=== PATIENT | female | born 1970 | race Caucasian/White ===

== ENCOUNTER 2023-03-16 08:21 | Emergency (ER) | payer OTHER, SELFPAY ==
--- NOTE | ~2023-03-16 | CT_ITS ---
EXAMINATION: CT ABDOMEN AND PELVIS WITH CONTRAST CLINICAL INFORMATION: Abdominal pain, vomiting and diarrhea COMPARISON: Abdominal ultrasound from 2006 and pelvic ultrasound from 2008 TECHNIQUE: Multidetector volumetric images were obtained from the superior aspect of the liver through the pubic symphysis following administration 85 mL of Omnipaque 350 intravenous contrast. Sagittal and coronal reformatted images were obtained on the technologist's workstation. Oral contrast: Yes This CT examination was performed using dose optimization techniques as appropriate, variously including the following: *Automated exposure control *Adjustment of mA and/or kV according to patient size (this includes techniques or standardized protocols for targeted exams where dose is matched to indication/reason for exam; i.e. extremities or head) *Use of iterative reconstruction technique DLP: 650 mGy-cm FINDINGS: LUNG BASES: The visualized lung bases are unremarkable. LIVER, GALLBLADDER, AND BILIARY TREE: The liver is normal in size, shape, and attenuation. No focal hepatic lesion or biliary ductal dilatation is present. The gallbladder is unremarkable with no evidence of radiopaque gallstones, gallbladder wall thickening, or obvious pericholecystic inflammatory changes. PANCREAS: Unremarkable. SPLEEN: Unremarkable. ADRENAL GLANDS: Unremarkable. KIDNEYS AND URETERS: Limited due to motion artifact. No abnormality seen. BLADDER: Unremarkable. GASTROINTESTINAL TRACT: Limited due to motion artifact. It is difficult to exclude mild colitis of the right colon. Small and large bowel is otherwise normal. No evidence of obstruction, perforation or abscess. The appendix is normal. The stomach is normal. ABDOMINAL WALL: Small umbilical hernia containing fat. LYMPH NODES: Normal. VASCULAR: Unremarkable. PELVIC VISCERA: Unremarkable. OSSEOUS STRUCTURES: Unremarkable. CT/CT abdomen pelvis w IV con IMPRESSION: Limited exam due to respiratory motion artifact. It is difficult to exclude mild colitis of the right colon. Fleischner guidelines were followed.
[2023-03-16 09:11] VITALS: BMI 31.1
[2023-03-16 09:40] LABS: MANUAL DIFF FLAG NO
[2023-03-16 09:41] LABS: Basophils Absolute Auto 0.1 X10*3/uL (0.0-0.2); Basophils Percent Auto 0.8 % (0-2); Eosinophils Absolute Auto 0.1 X10*3/uL (0.0-0.4); Eosinophils Percent Auto 1.6 % (0-4); Hematocrit 45.2 % (37.0-47.0); Hemoglobin 15.3 g/dl (12.0-16.0); Imm Gran Abs Auto 0.01 X10*3/uL (0.00-0.03); Imm Gran Pct Auto 0.2 % (0.0-0.4); Lymphocytes Absolute Auto 2.2 X10*3/uL (1.2-4.9); Lymphocytes Percent Auto 36.1 % (20-40); Mean Corpuscular HGB Conc 33.8 g/dl (31.0-35.0); Mean Corpuscular Hemoglobin 29.5 pg (27.0-33.0); Mean Corpuscular Volume 87.1 fL (80.0-98.0); Mean Platelet Volume 9.5 fL (9.4-12.3); Monocytes Absolute Auto 0.5 X10*3/uL (0.1-1.2); Monocytes Percent Auto 8.6 % (2-11); Neutrophils Absolute Auto 3.3 x10*3/uL (2.0-8.3); Neutrophils Percent Auto 52.7 % (45-73); Platelet Count 284 X10*3/uL (160-400); Red Blood Count 5.19 X10*6/uL (4.20-5.50); Red Cell Distribution Width 13.6 % (11.0-16.0); White Blood Count 6.2 X10*3/uL (4.8-10.8)
[2023-03-16 10:04] LABS: Alanine Aminotransferase 29 U/L (0-31); Albumin Level 4.4 g/dL (3.5-5.0); Alkaline Phosphatase 81 U/L (39-117); Anion Gap 12 (12-20); Aspartate Amino Transferase 22 U/L (5-31); Bilirubin Direct 0.2 mg/dL (0.0-0.5); Bilirubin Total 1.1 mg/dL (0.0-1.0); Blood Urea Nitrogen 11 mg/dL (9-16); Calcium 9.5 mg/dL (8.4-10.2); Carbon Dioxide 27 mmol/L (22-29); Chloride 110 mmol/L (96-108); Creatinine Clr Calc Pharmacy 99.4; Estimated Glomerular Filt Rate > 60; Glucose Random 106 mg/dL (60-115); Lipase 34 U/L (8-78); Potassium 4.8 mmol/L (3.3-5.1); Sodium 144 mmol/L (135-145); Total Protein 7.3 g/dL (6.5-8.0)
--- NOTE | 2023-03-16 11:39 | ED_ITS ---
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 She states she has had several episodes of vomiting every single day after she eats. She also reports 3 episodes of nonbloody diarrhea per day. She reports diffuse abdominal pain, currently a 9-08/23. She states she had some coffee today but vomited it back up. She also reports some sensation of abdominal distention. She has had chills but no fevers. No urinary symptoms. No chest pain or SOB. MD elicited complaint: abdominal pain Pertinent past history: other (ovarian cancer) Onset (ago): month(s) (1) Pain Consistency: intermittent Location: diffuse Severity: severe Pain scale (0-10): 10 Quality: stabbing and aching Radiation: none Migration to: no migration Exacerbating factors: eating Relieving factors: nothing Context: foreign travel Associated symptoms: nausea, vomiting, diarrhea and chills Related Data Previous Rx's Medication Instructions Recorded amoxicillin 875 mg-potassium 1 tab PO BID #14 tabs 03/16/23 clavulanate 125 mg tablet ondansetron 4 mg disintegrating 4 mg PO Q8H PRN nausea and 03/16/23 tablet vomiting #10 tabs Allergies Allergy/AdvReac Type Severity Reaction Status Date / Time No Known Allergies Allergy Verified 03/16/23 09:20 Review of Systems Review of Systems Yes all other systems are reviewed and are negative PMFSH Social History Social History Smoked in Last 30 Days: No Use of substances other than those prescribed or required for medical reasons: No Advance Directives: No Advance Directives Information Provided: Yes Physical Exam ED Vital Signs: Vital Signs - 24 hr 03/16/23 11:40 03/16/23 12:03 03/16/23 15:22 Temperature 97.8 F 97.8 F Pulse Rate 61 53 Respiratory Rate 17 18 16 Blood Pressure 130/71 129/77 Pulse Oximetry 97 98 Oxygen Delivery Method Room Air Room Air BMI result Body Mass Index 31.1 Appearance: Alert. Oriented X3. No acute distress. Head: normocephalic, atraumatic. Eyes: Pupils equal, round and reactive to light. ENT: Pharynx normal. No tonsillar swelling or exudate. Neck: Normal inspection. Neck supple. CVS: Normal heart rate and rhythm. Pulses normal. Respiratory: No respiratory distress. Breath sounds normal. Abdomen: Well healed longitudinal surgical scar below the umbilicus, Soft with lower abdominal tenderness bilaterally, hyperactive +BS x4 Skin: Skin warm and dry. Normal skin color. Normal skin turgor. No rashes. Extremities: No lower extremity edema. No joint swelling. Neuro/psych: Oriented X 3. No motor deficit. No sensory deficit. CN II-XII intact. Normal speech and cognition. Course Reevaluation(s) Reevaluation #1: CT with question mild right sided colitis. labs unremarkable. given PO trial and she vomited. given reglan. will try again Medical Decision Making Medical Decision Making [facility] Narrative: 52 yo female with history of ovarian cancer s/p resection 1 year ago presents to the ER with 1 month of N/V/D and diffuse abd pain. Her abd is soft with lower abdominal tenderness, no guarding or rebound. Her lab workup is unremarkable. Her CT scan shows question right sided mild colitis. She was treated with morphine and zofran with improvement in her symptoms however she was not able to tolerate PO. She was then given reglan. Repeat PO trial successful. Differential Diagnosis Differential Diagnoses: The differential diagnosis associated with the presentation includes diverticulitis, colitis, SBO, appendicitis, IBD, IBS, traveler's diarrhea, Admission/Observation Consideration of admission/observation: Escalation of care including admiss ion/observation considered Lab Data [facility] Lab Attestation statement: I reviewed the patient's lab results. 03/16/23 09:37 03/16/23 09:37 Labs: Lab Results 03/16/23 03/16/23 Range/Units 09:37 09:37 WBC 6.2 (4.8-10.8) X10*3/uL RBC 5.19 (4.20-5.50) X10*6/uL Hgb 15.3 (12.0-16.0) g/dl Hct 45.2 (37.0-47.0) % MCV 87.1 (80.0-98.0) fL MCH 29.5 (27.0-33.0) pg MCHC 33.8 (31.0-35.0) g/dl RDW 13.6 (11.0-16.0) % Plt Count 284 (160-400) X10*3/uL MPV 9.5 (9.4-12.3) fL Immature Gran % (Auto) 0.2 (0.0-0.4) % Neut % (Auto) 52.7 (45-73) % Lymph % (Auto) 36.1 (20-40) % Clarke % (Auto) 8.6 (2-11) % Eos % (Auto) 1.6 (0-4) % Baso % (Auto) 0.8 (0-2) % Lymph # (Auto) 2.2 (1.2-4.9) X10*3/uL Clarke # (Auto) 0.5 (0.1-1.2) X10*3/uL Eos # (Auto) 0.1 (0.0-0.4) X10*3/uL Baso # (Auto) 0.1 (0.0-0.2) X10*3/uL Abs Immat Gran (auto) 0.01 (0.00-0.03) X10*3/uL Absolute Neuts (auto) 3.3 (2.0-8.3) x10*3/uL Absolute Nucleated RBC 0.000 (0.0-0.012) X10*3/uL Nucleated RBC % (auto) 0.0 (0.0-0.2) /100WBC Sodium 144 (135-145) mmol/L Potassium 4.8 (3.3-5.1) mmol/L Chloride 110 H (96-108) mmol/L Carbon Dioxide 27 (22-29) mmol/L Anion Gap 12 (12-20) BUN 11 (9-16) mg/dL Creatinine 0.78 (0.5-1.4) mg/dL Estim Creat Clear Calc 99.4 Estimated GFR > 60 Random Glucose 106 (60-115) mg/dL Calcium 9.5 (8.4-10.2) mg/dL Total Bilirubin 1.1 H (0.0-1.0) mg/dL Direct Bilirubin 0.2 (0.0-0.5) mg/dL AST 22 (5-31) U/L ALT 29 (0-31) U/L Alkaline Phosphatase 81 (39-117) U/L Total Protein 7.3 (6.5-8.0) g/dL Albumin 4.4 (3.5-5.0) g/dL Lipase 34 (8-78) U/L Beta HCG, Quant < 2 mIU/mL Independent Interpretation I performed an independent interpretation of an: CT Scan Interpretation: no acute obstruction or significant colitis - agree w/ radiology read Radiology Impression Discussion of test interpretation with radiology: I have reviewed the radiologist's reading. Radiologist Impression: CT/CT abdomen pelvis w IV con IMPRESSION: Limited exam due to respiratory motion artifact. It is difficult to exclude mild colitis of the right colon. Prescription Management I considered prescription management with: Pain Medication and Antibiotic Medications Administered Discontinued Medications Generic Name Dose Route Start Last Admin Trade Name Freq PRN Reason Stop Dose Admin Lactated Ringer's 1,000 mls @ 999 mls/hr 03/16/23 12:00 03/16/23 13:21 Lr IV 03/16/23 13:00 Infused .Q1H1M CHONG Infusion Iohexol 85 ml 03/16/23 13:20 03/16/23 13:21 Iohexol 350 Mg/Ml 100 Ml Infus..Btl IV 03/16/23 13:21 85 ml ONCE ONE Administration Metoclopramide HCl 10 mg 03/16/23 15:04 03/16/23 15:18 Metoclopramide Hcl 10 Mg/2 Ml Vial IVPUSH 03/16/23 15:05 10 mg ONCE ONE Administration Morphine Sulfate 4 mg 03/16/23 11:50 03/16/23 12:03 Morphine Sulfate 4 Mg/Ml Cartridge IVPUSH 03/16/23 11:51 4 mg ONCE ONE Administration Protocol Ondansetron HCl 4 mg 03/16/23 11:50 03/16/23 12:02 Ondansetron Hcl 4 Mg/2 Ml Vial IVPUSH 03/16/23 11:51 4 mg ONCE ONE Administration Discharge Plan Discharge Clinical Impression: Colitis Patient Disposition: Home, Self-Care Instructions: Acute Nausea and Vomiting (ED), Colitis (ED) Additional Instructions: If you develop new or worsening symptoms call 911 or come back to the ER for further evaluation. Prescriptions: New ondansetron 4 mg tablet,disintegrating 4 mg PO Q8H PRN (Reason: nausea and vomiting) Qty: 10 0RF amoxicillin-pot clavulanate 875-125 mg tablet 1 tab PO BID Qty: 14 0RF Referrals: [facility] [Provider Group]
[2023-03-16 11:40] VITALS: BP 130/71; PULSE 61; RESP 17; TEMP 36.6; O2SAT 97
[2023-03-16] MEDS: ondansetron HCL 4 MG/2 ML VIAL IVPUSH (12:02)
[2023-03-16 12:03] VITALS: RESP 18
[2023-03-16] MEDS: Morphine Sulfate 4 MG/ML CARTRIDGE IVPUSH (12:03)
[2023-03-16] MEDS: Lactated Ringers 1,000 ML 999 ML IV (12:14)
[2023-03-16 12:36] LABS: HCG Quantitative < 2 mIU/mL
[2023-03-16] MEDS: iohexoL 350 MG/ML 100 ML INFUS..BTL 85 ML IV (13:21)
[2023-03-16] MEDS: Metoclopramide HCl 10 MG/2 ML VIAL IVPUSH (15:18)
[2023-03-16 15:22] VITALS: BP 129/77; PULSE 53; RESP 16; TEMP 36.6; O2SAT 98
== END 2023-03-16 16:51 | disposition home or self-care (01) ==
PROVIDERS: Physician Assistant; Emergency Provider Emergency Medicine
DX: K52.9 Noninfective gastroenteritis and colitis, unspecified (principal); R11.2 Nausea with vomiting, unspecified; R10.9 Unspecified abdominal pain; Z85.43 Personal history of malignant neoplasm of ovary
CPT/HCPCS: 36415; 74177; 80048; 80076; 83690; 84702; 85025; 96361; 96374; 96375; 99284; J2270; J2405; J2765; Q9967

== ENCOUNTER 2023-10-14 16:02 | Emergency (ER) | payer OTHER, SELFPAY ==
[2023-10-14 16:19] VITALS: BP 126/81; PULSE 92; RESP 18; TEMP 36.7; O2SAT 97; BMI 31.7
--- NOTE | 2023-10-14 16:19 | ED.GENADULT ---
HPI - General Adult General Chief complaint: Nausea/Vomiting/Diarrhea Stated complaint: vomiting Time Seen by Provider: 10/14/23 17:53 Source: patient, family and rn postpartum Mode of arrival: ambulatory Limitations: no limitations History of Present Illness HPI narrative: 53 yo female with PMH of uterine cancer s/p surgery a couple of years ago notes 2 days of n/v/d and body aches. Denies sick contacts, travel, food exposures, antibiotic use. States she is not sure why this is happening. No abdominal pain states her whole body hurts. MD complaint: n/v/d Onset (ago): day(s) (2) Location: head, abdomen, upper extremity and lower extremity Radiation: non-radiation Severity: mild Quality: aching Pain Consistency: intermittent Relieving factors: none Exacerbating factors: none Associated symptoms: headaches, loss of appetite, malaise, nausea/vomiting and other (diarrhea) Treatments prior to arrival: none Related Data Previous Rx's Medication Instructions Recorded amoxicillin 875 mg-potassium 1 tab PO BID #14 tabs 03/16/23 clavulanate 125 mg tablet ondansetron 4 mg disintegrating 4 mg PO Q8H PRN nausea and 03/16/23 tablet vomiting #10 tabs ondansetron 4 mg disintegrating 4 mg PO Q8H PRN nausea and 10/14/23 tablet vomiting #20 tabs Allergies Allergy/AdvReac Type Severity Reaction Status Date / Time No Known Allergies Allergy Verified 10/14/23 16:18 Review of Systems Review of Systems: Constitutional : No Weight loss, No Fever, No Chills ENT/Mouth : No sore throat, No Rhinorrhea Eyes: No Swelling, No Redness Cardiovascular : No Chest Pain, No SOB, NoEdema Respiratory : No Cough, No Sputum, No Wheezing Gastrointestinal : Positive Nausea, Positive Vomiting, positive Diarrhea, positive abdominal Pain, No Hematochezia, No Melena Genitourinary : No Dysuria, No Urinary Frequency, No Hematuria, No Urgency Musculoskeletal : No joint pain, pos Myalgias, No Joint Swelling Skin : No Skin Lesions, No rash Neuro : No Weakness, No Numbness, No Dizziness, No Headache Psych : No Anxiety/Panic, No Depression Heme/Lymph: No Bruising, No Lymphadenopathy Endocrine : No Polyuria, No Polydipsia All other systems reviewed and are negative. [facility] Past Medical History Attestation statement: The following information was validated with the patient. Medical History Uterine cancer Surgical History H/O: hysterectomy Social History Alcohol intake: never Smoked in Last 30 Days: No Use of substances other than those prescribed or required for medical reasons: No Advance Directives: No Advance Directives Information Provided: No Patient : No Physical Exam ED Vital Signs: Vital Signs - 24 hr 10/14/23 16:19 10/14/23 18:07 10/14/23 19:43 Temperature 98.0 F 97.9 F 98.3 F Pulse Rate 92 80 Respiratory Rate 18 18 Blood Pressure 126/81 110/66 Pulse Oximetry 97 94 Oxygen Delivery Method Room Air Room Air 10/14/23 19:44 Temperature 97.8 F Pulse Rate 71 Respiratory Rate 18 Blood Pressure 117/70 Pulse Oximetry 98 Oxygen Delivery Method Room Air BMI result Body Mass Index 31.7 Appearance: Alert. Oriented X3. No acute distress. Eyes: Pupils equal, round and reactive to light. ENT: Pharynx normal. Neck: Normal inspection. Neck supple. CVS: Normal heart rate and rhythm. Pulses normal. Respiratory: No respiratory distress. Breath sounds normal. Abdomen: Soft and nontender. Skin: Skin warm and dry. Normal skin color. Normal skin turgor. Extremities: No lower extremity edema. No calf ttp Neuro: Oriented X 3. No motor deficit. No sensory deficit. Course Course Course Narrative: This is a rapid medical exam. Deferred additional HPI, ROS, PE to primary provider. 53 yo female with no known medical history here with body aches, vomiting, diarrhea x 2 days. No sick contact. Negative covid test at home. Will obtain labs, viral screen, UA Will give SL zofran VSS Reevaluation(s) Reevaluation #1: feels better tolerating PO stable for DC Medications Administered Discontinued Medications Generic Name Dose Route Start Last Admin Trade Name Freq PRN Reason Stop Dose Admin Sodium Chloride 1,000 mls @ 999 mls/hr 10/14/23 18:30 10/14/23 19:25 Ns IV 10/14/23 19:30 Infused .Q1H1M CHONG Infusion Ketorolac Tromethamine 15 mg 10/14/23 18:18 10/14/23 18:23 Ketorolac Tromethamine 15 Mg/Ml Vial IVPUSH 10/14/23 18:19 15 mg ONCE ONE Administration Ondansetron HCl 4 mg 10/14/23 16:20 10/14/23 16:22 Ondansetron Odt 4 Mg Tab.Rapdis TRANSLINGU 10/14/23 16:21 4 mg ONCE ONE Administration Ondansetron HCl 4 mg 10/14/23 18:18 10/14/23 18:23 Ondansetron Hcl 4 Mg/2 Ml Vial IVPUSH 10/14/23 18:19 4 mg ONCE ONE Administration Medical Decision Making Medical Decision Making MDM Narrative: 53 yo female with resolved uterine cancer here with c/o body aches, n/v/d and not feeling well x 2 days without a source at this time labs, viral panel, IVF and supportive medications. She has benign abdominal exam and no ttp she has mild bump in LFTs but could be viral denies restaurant food and has no RUQ pain on exam. Differential Diagnosis Differential Diagnoses: The differential diagnosis associated with the presentation includes viral syndrome, dehydraion, UTI Admission/Observation Consideration of admission/observation: Escalation of care including admission/observation considered feels better, tolerating PO stable for DC Lab Data [facility] Lab Attestation statement: I reviewed the patient's lab results. 10/14/23 16:48 10/14/23 16:48 Labs: Lab Results 10/14/23 10/14/23 Range/Units 16:46 16:48 WBC 9.2 (4.8-10.8) X10*3/uL RBC 4.91 (4.20-5.50) X10*6/uL Hgb 14.6 (12.0-16.0) g/dl Hct 43.5 (37.0-47.0) % MCV 88.6 (80.0-98.0) fL MCH 29.7 (27.0-33.0) pg MCHC 33.6 (31.0-35.0) g/dl RDW 13.5 (11.0-16.0) % Plt Count 288 (160-400) X10*3/uL MPV 10.1 (9.4-12.3) fL Immature Gran % (Auto) 0.2 (0.0-0.4) % Neut % (Auto) 89.6 H (45-73) % Lymph % (Auto) 5.8 L (20-40) % Caroline % (Auto) 4.1 (2-11) % Eos % (Auto) 0.0 (0-4) % Baso % (Auto) 0.3 (0-2) % Lymph # (Auto) 0.5 L (1.2-4.9) X10*3/uL Caroline # (Auto) 0.4 (0.1-1.2) X10*3/uL Eos # (Auto) 0.0 (0.0-0.4) X10*3/uL Baso # (Auto) 0.0 (0.0-0.2) X10*3/uL Abs Immat Gran (auto) 0.02 (0.00-0.03) X10*3/uL Absolute Neuts (auto) 8.3 (2.0-8.3) x10*3/uL Absolute Nucleated RBC 0.000 (0.0-0.012) X10*3/uL Nucleated RBC % (auto) 0.0 (0.0-0.2) /100WBC Sodium 139 (135-145) mmol/L Potassium 3.6 D (3.3-5.1) mmol/L Chloride 107 (96-108) mmol/L Carbon Dioxide 23 (22-29) mmol/L Anion Gap 13 (12-20) BUN 12 (9-16) mg/dL Creatinine 0.88 (0.5-1.4) mg/dL Estim Creat Clear Calc 84.9 Estimated GFR > 60 Random Glucose 118 H (60-115) mg/dL Calcium 9.3 (8.4-10.2) mg/dL Total Bilirubin 0.9 (0.0-1.0) mg/dL Direct Bilirubin 0.3 (0.0-0.5) mg/dL AST 40 H (5-31) U/L ALT 53 H (0-31) U/L Alkaline Phosphatase 100 (39-117) U/L Total Protein 7.9 (6.5-8.0) g/dL Albumin 4.6 (3.5-5.0) g/dL Urine Color Yellow Urine Appearance Clear Urine pH 5.5 (5.0-9.0) Ur Specific Warren 1.025 (1.005-1.025) Urine Protein Negative (Neg-Trace) mg/dL Urine Glucose (UA) Negative (Negative) mg/dL Urine Ketones Negative (Negative) mg/dL Urine Blood Trace (Negative) Urine Nitrite Negative (Negative) Ur Leukocyte Esterase Negative (Negative) Urine RBC 3-5 H (0-2) /HPF Urine WBC 0-5 (0-5) /HPF Ur Squamous Epith Cells 6-10 (0-2) /HPF Urine Bacteria 2+ (None Seen) Hyaline Casts 3-5 (0-2) /LPF Influenza Type A (PCR) NEGATIVE (Negative) Influenza Type B (PCR) NEGATIVE (Negative) RSV RNA Qual (PCR) NEGATIVE (Negative) SARS-CoV-2 RNA (RT-PCR) NEGATIVE (Negative) Independent Historian Clinical information obtained from an independent historian. History obtained from or confirmed by: Friend External Record Review External record reviewed: Inpatient record Prescription Management I considered prescription management with: Other Discharge Plan Discharge Clinical Impression: Acute viral syndrome Nausea & vomiting Qualifiers: Vomiting type: unspecified Qualified Code(s): R11.2 - Nausea with vomiting, unspecified Patient Disposition: Home, Self-Care Instructions: Acute Nausea and Vomiting (ED), Viral Syndrome (ED) Additional Instructions: return for chest pain, difficulty breathing, inability to eat or drink or any other concerns. worsening abdominal pain. repeat liver function tests in 1 week with your doctor. Regrese por dolor en el pecho, dificultad para respirar, incapacidad para comer o beber o cualquier otra inquietud. empeoramiento del dolor abdominal. Repita las pruebas de funci?n hep?felix en 1 semana con tellez m?dico. Prescriptions: New ondansetron 4 mg tablet,disintegrating 4 mg PO Q8H PRN (Reason: nausea and vomiting) Qty: 20 0RF No Action ondansetron 4 mg tablet,disintegrating 4 mg PO Q8H PRN (Reason: nausea and vomiting) Qty: 10 0RF amoxicillin-pot clavulanate 875-125 mg tablet 1 tab PO BID Qty: 14 0RF Print Language: Kyrgyz
[2023-10-14] MEDS: Ondansetron ODT 4 MG TAB.RAPDIS TRANSLINGU (16:22)
--- NOTE | 2023-10-14 16:49 | MHC.EDTECH ---
Patient blood drawn ,urine sample collected and rsv/covid swab all sent to lab .
[2023-10-14 17:00] LABS: MANUAL DIFF FLAG NO
[2023-10-14 17:02] LABS: Basophils Percent Auto 0.3 % (0-2); Hematocrit 43.5 % (37.0-47.0); Hemoglobin 14.6 g/dl (12.0-16.0); Imm Gran Abs Auto 0.02 X10*3/uL (0.00-0.03); Imm Gran Pct Auto 0.2 % (0.0-0.4); Lymphocytes Absolute Auto 0.5 X10*3/uL (1.2-4.9); Lymphocytes Percent Auto 5.8 % (20-40); Mean Corpuscular HGB Conc 33.6 g/dl (31.0-35.0); Mean Corpuscular Hemoglobin 29.7 pg (27.0-33.0); Mean Corpuscular Volume 88.6 fL (80.0-98.0); Mean Platelet Volume 10.1 fL (9.4-12.3); Monocytes Absolute Auto 0.4 X10*3/uL (0.1-1.2); Monocytes Percent Auto 4.1 % (2-11); Neutrophils Absolute Auto 8.3 x10*3/uL (2.0-8.3); Neutrophils Percent Auto 89.6 % (45-73); Platelet Count 288 X10*3/uL (160-400); Red Blood Count 4.91 X10*6/uL (4.20-5.50); Red Cell Distribution Width 13.5 % (11.0-16.0); White Blood Count 9.2 X10*3/uL (4.8-10.8)
[2023-10-14 17:03] LABS: Appearance Urine Clear; Color Urine Yellow; Glucose Urine UA Negative (Negative); Leukocyte Esterase Urine Negative (Negative); Nitrite Urine Negative (Negative); PH 5.5 (5.0-9.0); Specific Gravity - Urine 1.025 (1.005-1.025); UMIC TRIGGER UACC YES; Urine Blood Trace (Negative); Urine Ketones Negative (Negative); Urine Protein Negative (Neg-Trace)
[2023-10-14 17:08] LABS: Bacteria Urine 2+ (None Seen); WBC Urine 0-5 /HPF (0-5)
[2023-10-14 17:19] LABS: Alanine Aminotransferase 53 U/L (0-31); Albumin Level 4.6 g/dL (3.5-5.0); Alkaline Phosphatase 100 U/L (39-117); Anion Gap 13 (12-20); Aspartate Amino Transferase 40 U/L (5-31); Bilirubin Direct 0.3 mg/dL (0.0-0.5); Bilirubin Total 0.9 mg/dL (0.0-1.0); Blood Urea Nitrogen 12 mg/dL (9-16); Calcium 9.3 mg/dL (8.4-10.2); Carbon Dioxide 23 mmol/L (22-29); Chloride 107 mmol/L (96-108); Creatinine Clr Calc Pharmacy 84.9; Estimated Glomerular Filt Rate > 60; Glucose Random 118 mg/dL (60-115); Potassium 3.6 mmol/L (3.3-5.1); Sodium 139 mmol/L (135-145); Total Protein 7.9 g/dL (6.5-8.0)
[2023-10-14 17:48] LABS: Influenza A PCR NEGATIVE (Negative); Influenza B PCR NEGATIVE (Negative); Resp Syncy Virus RNA Qual PCR NEGATIVE (Negative); SARS COV2 PCR INHOUSE NEGATIVE (Negative)
[2023-10-14 18:07] VITALS: BP 110/66; PULSE 80; RESP 18; TEMP 36.6; O2SAT 94
[2023-10-14] MEDS: 0.9 % Sodium Chloride 1,000 ML 999 ML IV (18:20)
[2023-10-14] MEDS: Ketorolac Tromethamine 15 MG/ML VIAL IVPUSH (18:23)
[2023-10-14] MEDS: ondansetron HCL 4 MG/2 ML VIAL IVPUSH (18:23)
--- NOTE | 2023-10-14 19:38 | PC.NURSE ---
Pt ca&ox4, no signs of distress. Pt resting comfortably in bed watching tv. Plan of care ongoing.
[2023-10-14 19:43] VITALS: TEMP 36.8
[2023-10-14 19:44] VITALS: BP 117/70; PULSE 71; RESP 18; TEMP 36.6; O2SAT 98
== END 2023-10-14 21:01 | disposition home or self-care (01) ==
PROVIDERS: Nurse Practitioner Family; Emergency Provider Emergency Medicine
DX: B34.9 Viral infection, unspecified (principal); R11.2 Nausea with vomiting, unspecified; R19.7 Diarrhea, unspecified; Z20.822 Contact with and (suspected) exposure to COVID-19; Z20.828 Contact with and (suspected) exposure to other viral communicable diseases
CPT/HCPCS: 0241U; 36415; 80048; 80076; 81001; 81003; 85025; 96361; 96374; 96375; 99284; 99285; J1885; J2405

== ENCOUNTER 2023-11-26 22:23 | Emergency (ER) | payer OTHER, SELFPAY ==
[2023-11-26 22:31] VITALS: BP 141/92; PULSE 113; RESP 16; TEMP 38; O2SAT 96; BMI 23.6
--- NOTE | 2023-11-27 01:26 | ED.URI ---
HPI - URI/Sore Throat General Chief Complaint: Upper Respiratory Symptoms Stated Complaint: Headache,sore throat,vomiting Time Seen by Provider: 11/27/23 01:13 Source: patient Mode of arrival: ambulatory Limitations: no limitations History of Present Illness HPI Narrative: Patient comes to the emergency room complaining of 3 days of dry cough, generalized malaise, sore throat, congestion, nausea and vomiting. Patient denies chest pain or shortness of breath, no abdominal pain. Related Data Previous Rx's Medication Instructions Recorded amoxicillin 875 mg-potassium 1 tab PO BID #14 tabs 03/16/23 clavulanate 125 mg tablet ondansetron 4 mg disintegrating 4 mg PO Q8H PRN nausea and 03/16/23 tablet vomiting #10 tabs ondansetron 4 mg disintegrating 4 mg PO Q8H PRN nausea and 10/14/23 tablet vomiting #20 tabs ibuprofen 600 mg tablet 600 mg PO TID PRN fever or pain 11/27/23 #20 tabs nirmatrelvir 300 mg (150 mg See Rx Instructions PO .COMPLEX 11/27/23 x2)-ritonavir 100 mg tablet,dose #30 ea pack (Paxlovid) Allergies Allergy/AdvReac Type Severity Reaction Status Date / Time No Known Allergies Allergy Verified 10/14/23 16:18 Review of Systems Review of Systems: Constitutional : No Weight loss, complaining of subjective fever, chills, fatigue and generalized malaise ENT/Mouth : No Hearing loss, No Ear Pain, complaining of Nasal Congestion, No Sinus Pain, No Hoarseness, complaining of sore throat, No Rhinorrhea, No Swallowing Difficulty Eyes: No Eye Pain, No Swelling, No Redness, No Foreign Body, No Discharge, No Vision Changes Cardiovascular : No Chest Pain, No SOB, No Dyspnea on Exertion, No Orthopnea, No Edema, No Palpitations Respiratory : Complaining of dry cough, No Wheezing, No Smoke Exposure, No Dyspnea Gastrointestinal : No Nausea, No Vomiting, No Diarrhea, No Constipation, No abdominal Pain, No Hematochezia, No Melena Genitourinary : no irregular bleeding, No Dysuria, No Urinary Frequency, No Hematuria, No Urinary Incontinence, No Urgency, No Flank Pain, No Urinary Flow Changes, No Hesitancy Musculoskeletal : No joint pain, No Myalgias, No Joint Swelling Skin : No Skin Lesions, No rash Neuro : No Weakness, No Numbness, No Paresthesias, No Loss of Consciousness, No Dizziness, No Headache Psych : No Anxiety/Panic, No Depression, No SI/HI/AH/VH, No Social Issues, Heme/Lymph: No Bruising, No Bleeding,No Lymphadenopathy Endocrine : No Polyuria, No Polydipsia, No Temperature Intolerance PMFSH Past Medical History Onset Date is defined in the Problem List Problems that require an onset date and time if occurred within 24 hrs of arrival to the ED Aortic Dissection and Rupture; Neurologic impairment; Cardiopulmonary Arrest; Endotracheal Intubation; Insertion or Replacement of Mechanical Circulatory Assist Device Medical History Uterine cancer Surgical History H/O: hysterectomy Social History Social History Alcohol intake: never Advance Directives: No Advance Directives Information Provided: No Physical Exam Vital Signs: Vital Signs: Last Vital Signs Temp 100.4 F 11/26/23 22:31 Pulse 113 H 11/26/23 22:31 Resp 16 11/26/23 22:31 BP 141/92 H 11/26/23 22:31 Pulse Ox 96 11/26/23 22:31 O2 Del Method Room Air 11/26/23 22:31 BMI result Body Mass Index 23.6 Const: Other: Appearance: Alert. Oriented X3. No acute distress. Eyes: Pupils equal, round and reactive to light. ENT: Pharynx normal. Neck: Normal inspection. Neck supple. No lymph nodes noted. No crepitus CVS: Normal heart rate and rhythm. Pulses normal. Normal S1 and S2 Respiratory: No respiratory distress. Breath sounds normal. No Wheezing. No rales Abdomen: Soft and nontender. No rigidity. No distention. Skin: Skin warm and dry. Normal skin color. Normal skin turgor. Extremities: No lower extremity edema. No Lacerations. No Rash Neuro: Oriented X 3. No motor deficit. No sensory deficit. Moving all extremities. No slurred speech. CN 2 through 12 grossly intact Psych: calm, cooperative, normal affect Medications Administered Discontinued Medications Generic Name Dose Route Start Last Admin Trade Name Freq PRN Reason Stop Dose Admin Acetaminophen 650 mg 11/26/23 22:35 11/26/23 22:38 Acetaminophen 325 Mg Tablet PO 11/26/23 22:36 650 mg ONCE ONE Administration Medical Decision Making Medical Decision Making [facility] Narrative: -my interpretation of labs: Patient tested positive for RSV and COVID -I discussed with the patient that after 3 days, Paxlovid may not be as effective as if it was taking an early on in the course of the disease. However, she still in the window treatment. Patient is requesting to be treated with antiviral. Differential Diagnosis Differential Diagnoses: The differential diagnosis associated with the presentation includes (COVID, RSV, viral URI) Lab Data [facility] Lab Attestation statement: I reviewed the patient's lab results. Labs: Lab Results 11/26/23 11/27/23 Range/Units 23:07 00:45 Influenza Type A (PCR) NEGATIVE (Negative) Influenza Type B (PCR) NEGATIVE (Negative) RSV RNA Qual (PCR) POSITIVE A (Negative) SARS-CoV-2 RNA (RT-PCR) POSITIVE A (Negative) S. pyogenes GrpA YINKA Negative (Negative) Discharge Plan Discharge Clinical Impression: COVID, RSV bronchitis Patient Disposition: Home, Self-Care Instructions: Respiratory Syncytial Virus (ED), COVID-19 (Coronavirus Disease 2019) (ED) Additional Instructions: Please follow-up with your primary care physician tomorrow. If you have any worsening or new symptoms, please return to the emergency room or call 911 Prescriptions: New Paxlovid 300 mg (150 mg x 2)-100 mg tablets,dose pack See Rx Instructions .ROUTE .COMPLEX Qty: 30 0RF Rx Instructions: take TWO 150 mg tablets of nirmatrelvir with ONE 100 mg tablet of ritonavir twice daily for 5 days ibuprofen 600 mg tablet 600 mg PO TID PRN (Reason: fever or pain) Qty: 20 0RF No Action ondansetron 4 mg tablet,disintegrating 4 mg PO Q8H PRN (Reason: nausea and vomiting) Qty: 10 0RF amoxicillin-pot clavulanate 875-125 mg tablet 1 tab PO BID Qty: 14 0RF ondansetron 4 mg tablet,disintegrating 4 mg PO Q8H PRN (Reason: nausea and vomiting) Qty: 20 0RF Stand Alone Forms: Work/School Release
[2023-11-27 01:44] VITALS: O2SAT 98
== END 2023-11-27 01:46 | disposition home or self-care (01) ==
PROVIDERS: Emergency Provider Emergency Medicine
DX: U07.1 COVID-19 (principal); J22 Unspecified acute lower respiratory infection; B97.4 Respiratory syncytial virus as the cause of diseases classified elsewhere; R51.9 Headache, unspecified; J02.9 Acute pharyngitis, unspecified; R05.9 Cough, unspecified; Z79.899 Other long term (current) drug therapy
CPT/HCPCS: 0241U; 87651; 99283; J1100

== ENCOUNTER 2025-08-05 23:34 | Emergency (ER) | payer OTHER, SELFPAY ==
--- NOTE | ~2025-08-05 | CT_ITS ---
CLINICAL HISTORY: left flank and LLQ pain CT abdomen and pelvis without contrast Comparison: CT - CT ABDOMEN PELVIS WITH IV CONTRAST - 03/16/23 13:20 EDT Findings: 1.1 cm left lower lobe pulmonary nodule. Minimal bilateral pleural effusions are partially visualized. Minimal pericardial effusion. The solid organs are within normal limits. Mildly motion limited evaluation of the gallbladder. Borderline gallbladder wall thickening is not excluded. No radiopaque gallstones are identified. No renal stones. No hydronephrosis or hydroureter. No bowel obstruction, pneumoperitoneum, or pneumatosis. Mildly limited evaluation of the small bowel related to small bowel underdistention. Tiny, fat containing umbilical hernia. The uterus is surgically absent. The bladder is underdistended, mildly limiting its evaluation. There is borderline bladder wall thickening. Normal appendix. The bones are intact. IMPRESSION: 1. Borderline bladder wall thickening. This is nonspecific, possibly related to bladder underdistention. If there is clinical concern for mild cystitis, may consider correlation with urinalysis results for further evaluation. No radiopaque renal calculi, hydronephrosis, or hydroureter. 2. Mildly motion limited evaluation of the gallbladder. Subtle gallbladder wall thickening is not excluded. May consider gallbladder ultrasound examination and/or nuclear medicine HIDA scan if there is clinical concern for subtle cholecystitis. This document has been electronically signed by: Shahid Augustin MD on 08/06/2025 02:18:37
[2025-08-05 23:39] VITALS: BP 136/88; PULSE 80; RESP 18; TEMP 36.8; O2SAT 95; BMI 30.7
[2025-08-05 23:54] LABS: MANUAL DIFF FLAG NO
[2025-08-05 23:55] LABS: Hematocrit 44.2 % (37.0-47.0); Hemoglobin 15.6 g/dl (12.0-16.0); Imm Gran Abs Auto 0.01 X10*3/uL (0.00-0.03); Imm Gran Pct Auto 0.2 % (0.0-0.4); Lymphocytes Absolute Auto 2.2 X10*3/uL (1.2-4.9); Mean Corpuscular HGB Conc 35.3 g/dl (31.0-35.0); Mean Corpuscular Hemoglobin 30.4 pg (27.0-33.0); Mean Corpuscular Volume 86.0 fL (80.0-98.0); NRBC Abs Auto 0.000 X10*3/uL (0.0-0.012); NRBC Pct Auto 0.0 /100WBC (0.0-0.2); Platelet Count 294 X10*3/uL (160-400); Red Blood Count 5.14 X10*6/uL (4.20-5.50); White Blood Count 6.2 X10*3/uL (4.8-10.8)
[2025-08-05 23:59] LABS: Appearance Urine Clear; Glucose Urine UA Negative (Negative); PH 6.5 (5.0-9.0); Specific Gravity - Urine 1.020 (1.005-1.025)
[2025-08-06] LABS: UPreg QC Valid YES
[2025-08-06 00:09] LABS: Alanine Aminotransferase 60 U/L (0-31); Albumin Level 4.8 g/dL (3.5-5.0); Alkaline Phosphatase 92 U/L (39-117); Anion Gap 14 (12-20); Aspartate Amino Transferase 53 U/L (5-31); Blood Urea Nitrogen 8 mg/dL (9-16); Calcium 9.2 mg/dL (8.4-10.2); Carbon Dioxide 26 mmol/L (22-29); Chloride 107 mmol/L (96-108); Creatinine Clr Calc Pharmacy 104.0; Estimated Glomerular Filt Rate > 60; Lipase 27 U/L (8-78); Potassium 3.6 mmol/L (3.3-5.1); Sodium 143 mmol/L (135-145); Total Protein 7.9 g/dL (6.5-8.0)
--- NOTE | 2025-08-06 00:14 | ED.ABDPAIN ---
HPI - Abdominal Pain General Chief Complaint: Abdominal Pain Stated Complaint: abd pain Time Seen by Provider: 08/05/25 23:43 Source: patient and manager parking Mode of arrival: ambulatory Limitations: no limitations History of Present Illness ED Provider: DR. Mckeon HPI narrative: 54-year-old female came in for evaluation of left-sided abdominal pain x2 days, pain has been constant localized to the left lower abdominal area without radiation, pain is associated with nausea no vomiting, had normal bowel movement earlier today with no blood in her, no vomiting, reports frequent urination but no dysuria, no hematuria, no odorous urine, no vaginal discharge, no vaginal bleed. Intra-abdominal surgery significant for , ovarian removal patient can not confirm reason for oophorectomy. Patient or or is a limited historian not sure if she had any other intra-abdominal surgery. History of kidney stones in the past. Related Data Previous Rx's ?Medication ?Instructions ?Recorded amoxicillin 875 mg-potassium 1 tab PO BID #14 tabs 03/16/23 clavulanate 125 mg tablet ondansetron 4 mg disintegrating 4 mg PO Q8H PRN nausea and 03/16/23 tablet vomiting #10 tabs ondansetron 4 mg disintegrating 4 mg PO Q8H PRN nausea and 10/14/23 tablet vomiting #20 tabs ibuprofen 600 mg tablet 600 mg PO TID PRN fever or pain 11/27/23 #20 tabs nirmatrelvir 300 mg (150 mg See Rx Instructions PO .COMPLEX 11/27/23 x2)-ritonavir 100 mg tablet,dose #30 ea pack (Paxlovid) Allergies Allergy/AdvReac Type Severity Reaction Status Date / Time No Known Allergies Allergy Verified 08/05/25 23:42 Review of Systems Review of Systems All other systems are reviewed and are negative Constitutional: Reports as per HPI and Reports no additional constitutional complaints Eyes: Reports as per HPI and Reports no additional eye complaints Reports system reviewed and no additional complaints, except as documented Cardiovascular: Reports as per HPI and Reports no additional cardiovascular complaints Respiratory: Reports as per HPI and Reports no additional respiratory complaints Gastrointestinal: Reports as per HPI and Reports no additional gastrointestinal complaints Genitourinary: Reports no additional female genitourinary complaints Musculoskeletal: Reports no additional musculoskeletal complaints Skin/Breast: Reports system reviewed and no additional complaints, except as docu Psychiatric: Reports no additional psychiatric complaints Endocrine: Reports no additional endocrine complaints Hematologic/Lymphatic: Reports no additional hematologic/lymphatic complaints Allergic/Immunologic: Reports no additional allergic/immunologic complaints Reports system reviewed and no additional complaints, except as documented and Reports Abnormal speech present [facility] Past Medical History Medical History Uterine cancer Surgical History H/O: hysterectomy Social History Social History Alcohol intake: never Smoked in Last 30 Days: No Use of substances other than those prescribed or required for medical reasons: No Advance Directives: No Patient : No Physical Exam ED Vital Signs: Vital Signs - 24 hr 08/05/25 23:39 08/06/25 02:48 Temperature 98.2 F 97.7 F Pulse Rate 80 60 Respiratory Rate 18 16 Blood Pressure 136/88 121/75 Pulse Oximetry 95 96 Oxygen Delivery Method Room Air Room Air BMI result Body Mass Index 30.7 Vital signs have been reviewed and appear to be correct. Blood pressure elevated. Heart rate normal. Respiratory rate normal. Temperature normal. Oxygen saturation normal. Appearance: Alert. Oriented X3. No acute distress. Head: Normal external exam. Normocephalic. Atraumatic. No Call signs noted. No raccoon eyes noted Eyes: PERRLA. EOMI. Conjunctiva and sclera normal. Eyelids normal. ENT: TM's Normal. Pharynx normal. Uvula midline. Moist mucous membranes. No trismus noted. No drooling noted. No muffled voice noted. Neck: Normal inspection. Neck supple. FROM. No adenopathy. Thyroid Normal. No meningeal signs. No neck mass noted. CVS: Normal heart rate and rhythm. Heart sound normal. No murmurs noted. Pulses normal throughout. Respiratory: No respiratory distress. Painless inspiration. Breath sounds normal. No wheezes/rales/rhonchi noted. Chest nontender. No accessory muscle usage noted or decreased air movement noted. Abdomen: Soft , midline abdominal old surgical scar, mild left lower quadrant tenderness, no rebound tenderness, no guarding.Bowel sounds normal in all 4 quadrants. No distention noted. No organomegaly noted. No visible injury noted. Back: No CVA tenderness. Full range of motion noted. Skin: Skin warm and dry. Normal skin color. Normal skin turgor. No rashes/lesions/lacerations noted. Extremities: No lower extremity edema. Extremities exhibit normal range of motion. Extremities nontender. Neuro: Oriented X 3. Cranial nerve exam: II-XII are grossly intact No motor deficit. No sensory deficit. Reflexes normal. Course Reevaluation(s) Reevaluation #1: left abdominal pain, CT of the abdomen and pelvis reveals no clear etiology of patient's symptoms, normal WBCs, unremarkable labs and UA. CT concern of sudden gallbladder wall thickening, patient has no right upper quadrant tenderness, no suspicion for gallbladder disease, also the a subtle wall thickening of the urinary bladder there is no UTI reflected on the urine analysis. Will reassure the patient recommend to take ibuprofen if needed for pain every 6 hours. Time: 02:51 Medical Decision Making Differential Diagnosis Differential Diagnoses: The differential diagnosis associated with the presentation includes ( Renal colic, ureteric stone, colitis, diverticulitis, acute appendicitis, electrolyte derangement, severe anemia, UTI, pyelonephritis.) Admission/Observation Consideration of admission/observation: Escalation of care including admission/observation considered Lab Data [facility]DM Lab Attestation statement: I reviewed the patient's lab results. 08/05/25 23:50 08/05/25 23:50 Labs: Lab Results 08/05/25 08/05/25 Range/Units 23:48 23:50 WBC 6.2 (4.8-10.8) X10*3/uL RBC 5.14 (4.20-5.50) X10*6/uL Hgb 15.6 (12.0-16.0) g/dl Hct 44.2 (37.0-47.0) % MCV 86.0 (80.0-98.0) fL MCH 30.4 (27.0-33.0) pg MCHC 35.3 H (31.0-35.0) g/dl RDW 13.3 (11.0-16.0) % Plt Count 294 (160-400) X10*3/uL MPV 9.6 (9.4-12.3) fL Immature Gran % (Auto) 0.2 (0.0-0.4) % Neut % (Auto) 53.5 (45-73) % Lymph % (Auto) 34.6 (20-40) % [place] % (Auto) 8.2 (2-11) % Eos % (Auto) 2.7 (0-4) % Baso % (Auto) 0.8 (0-2) % Lymph # (Auto) 2.2 (1.2-4.9) X10*3/uL [place] # (Auto) 0.5 (0.1-1.2) X10*3/uL Eos # (Auto) 0.2 (0.0-0.4) X10*3/uL Baso # (Auto) 0.1 (0.0-0.2) X10*3/uL Abs Immat Gran (auto) 0.01 (0.00-0.03) X10*3/uL Absolute Neuts (auto) 3.3 (2.0-8.3) x10*3/uL Absolute Nucleated RBC 0.000 (0.0-0.012) X10*3/uL Nucleated RBC % (auto) 0.0 (0.0-0.2) /100WBC Sodium 143 (135-145) mmol/L Potassium 3.6 (3.3-5.1) mmol/L Chloride 107 (96-108) mmol/L Carbon Dioxide 26 (22-29) mmol/L Anion Gap 14 (12-20) BUN 8 L (9-16) mg/dL Creatinine 0.70 (0.5-1.4) mg/dL Estim Creat Clear Calc 104.0 Estimated GFR > 60 Random Glucose 121 H (60-115) mg/dL Calcium 9.2 (8.4-10.2) mg/dL Total Bilirubin 1.1 H (0.0-1.0) mg/dL AST 53 H (5-31) U/L ALT 60 H (0-31) U/L Alkaline Phosphatase 92 (39-117) U/L Total Protein 7.9 (6.5-8.0) g/dL Albumin 4.8 (3.5-5.0) g/dL Lipase 27 (8-78) U/L Urine Color Yellow Urine Appearance Clear Urine pH 6.5 (5.0-9.0) Ur Specific [place] 1.020 (1.005-1.025) Urine Protein Negative (Neg-Trace) mg/dL Urine Glucose (UA) Negative (Negative) mg/dL Urine Ketones Negative (Negative) mg/dL Urine Blood Negative (Negative) Urine Nitrite Negative (Negative) Ur Leukocyte Esterase Negative (Negative) Urine Test NEGATIVE (NEGATIVE) Independent Interpretation I performed an independent interpretation of an: CT Scan ( Abdomen and pelvis:1. Borderline bladder wall thickening. This is nonspecific, possibly related to bladder underdistention. If there is clinical concern for mild cystitis, may consider correlation with urinalysis results for further evaluation. No radiopaque renal calculi, hydronephrosis, or hy) Radiology Impression Discussion of test interpretation with radiology: I have reviewed the radiologist's reading. Medications Administered Discontinued Medications Generic Name Dose Route Start Last Admin Trade Name Freq PRN Reason Stop Dose Admin Ketorolac Tromethamine 15 mg 08/06/25 00:13 08/06/25 00:36 Ketorolac Tromethamine 15 Mg/Ml Vial IVPUSH 08/06/25 00:14 15 mg ONCE ONE Administration Ondansetron HCl 4 mg 08/06/25 00:13 08/06/25 00:36 Ondansetron Hcl 4 Mg/2 Ml Vial IVPUSH 08/06/25 00:14 4 mg ONCE ONE Administration Discharge Plan Discharge Clinical Impression: Abdominal pain Patient Disposition: Home, Self-Care Instructions: Abdominal Pain (ED) Additional Instructions: Drink plenty of fluids, take ibuprofen 200 mg tablet every 6 hours if needed for pain. Follow-up with your primary doctor. Prescriptions: No Action ondansetron 4 mg tablet,disintegrating 4 mg PO Q8H PRN (Reason: nausea and vomiting) Qty: 10 0RF amoxicillin-pot clavulanate 875-125 mg tablet 1 tab PO BID Qty: 14 0RF Paxlovid 300 mg (150 mg x 2)-100 mg tablets,dose pack See Rx Instructions .ROUTE .COMPLEX Qty: 30 0RF Rx Instructions: take TWO 150 mg tablets of nirmatrelvir with ONE 100 mg tablet of ritonavir twice daily for 5 days ibuprofen 600 mg tablet 600 mg PO TID PRN (Reason: fever or pain) Qty: 20 0RF ondansetron 4 mg tablet,disintegrating 4 mg PO Q8H PRN (Reason: nausea and vomiting) Qty: 20 0RF Print Language: Cambodian
--- OUTSIDE RECORDS SUMMARY | 2025-08-06 01:10 | XMS_ITS | Clinical Summary ---
Author Organization [facility] Address [address] [place] [address] Care Team Providers Care [employer] Processing [employer] Manager Name Role Phone Eileen Multani MD Primary Care Provider [phone] Social History Tobacco Use Types Packs/Day Years Used Date Smoking Tobacco: Never Assessed Sex and Gender Information Value Date Recorded Sex Assigned at Not on file Gender Identity Not on file Sexual Orientation Not on file Job Start Date Occupation Industry Not on file Not on file Not on file Plan of Treatment Health Maintenance Due Date Last Done Comments Hepatitis B Vaccines (1 of 3 - 3-dose series) 1972 Hepatitis C Screening 1972 COVID-19 Vaccine (#1) 03/25/1973 Depression Screening 1984 Preventative Health Evaluation 1990 DTap / Tdap / Td (1 - Tdap) 1991 Cervical Cancer Screening (P ap Smear) 1993 Colon Cancer Screening (Colonoscopy) 2017 Breast Cancer Screening (Mammogram) 2022 Shingrix-Zoster Vaccine (1 of 2) 2022 Influenza Vaccine (#1) 2025 Pneumococcal Vaccine Aged Out No long er eligible based on patient's age to complete this topic RSV Ped < 20 months Aged Out No longe r eligible based on patient's age to complete this topic Care Teams [employer] Processing [employer] Manager Relationship Specialty Start Date End Date Eileen Multani MD [address] [place] [address] [address] [place] [address] PCP - General Internal Medicine 08/12/22
--- OUTSIDE RECORDS SUMMARY | 2025-08-06 01:10 | XMS_ITS | Clinical Summary ---
Author Organization [facility] Address [address] [place] [address] Phone Care Team Providers Care Colloid Mill Operator Name Role Phone Eileen Multani MD Primary Care Provider [phone] Allergies No known active allergies Active Problems Problem Noted Date Diagnosed Date History of endometrial cancer 09/26/2024 Surgical History Surgery Date Site/Laterality Comments SECTION PROCEDURE: HISTORICAL DELIVERY; COMMENT: 1993, 1995 OTHER SURGICAL HISTORY 01/06/2022 PROCEDURE: MS LAPS TOTAL HYSTERECT 250 GM/< W/RMVL TUBE/OVARY; COMMENT: Robotic-assisted total laparoscopic hysterectomy with bilateral salpingo-oophorectomy and bilateral sentinel lymph node biopsy with Firefly. HYSTERECTOMY Family History Medical History Relation Name Comments Ovarian cancer Father's side Cousin Relation Name Status Comments Father's side Social History Tobacco Use Types Packs/Day Years Used Date Smoking Tobacco: Never Smokeless Tobacco: Never Comments No Sex and Gender Information Value Date Recorded Sex Assigned at Not on file Legal Sex Female 5:29 AM EST Gender Identity Not on file Sexual Orientation Not on file Obstetrics History Para Term AB IAB SAB Ectopic Multiple Livin g Live Births 2 Last Filed Vital Signs Vital Sign Reading Time Taken Comments Blood Pressure 138/82 09/26/2024 9:08 AM EST Pulse 80 09/26/2024 9:08 AM EST Temperature 36.4 C (97.6 F) 09/26/2024 9:08 AM EST Respiratory Rate - - Oxygen Saturation - - Inhaled Oxygen Concentration - - Weight 86.2 kg (190 lb) 11/03/2024 10:27 AM EST Height 165.1 cm (5' 5 ) 11/03/2024 10:27 AM EST Body Mass Index 31.62 11/03/2024 10:27 AM EST Plan of Treatment Upcoming Encounters Date Type Department Care Team (Late st Contact Info) Description 09/28/2025 11:00 AM EST Office Visit [facility] [address] [place] [id number] Edis Ramírez MD [address] [place] [address] Health Maintenance Due Date Last Done Comments COVID-19 Vaccine (#1) 1977 Hepatitis B Vaccines (1 of 3 - 19+ 3-dose series) 1991 Zoster Vaccines (1 of 2) 1991 Cervical Cancer Screening: P ap Smear 1993 DTaP,Tdap,and Td Vaccines (2 - Td or Tdap) 11/05/2018 11/05/2008 Pneumococcal Vaccine: 50+ Ye ars (1 of 1 - PCV) 2022 Colorectal Cancer Screening: Colonoscopy 10/26/2022 HIV Screening 10/26/2022 Hepatitis C Screening 10/26/2022 Social Influencers of Health Screening 10/26/2022 Depression Screening 11/23/2024 Influenza Vaccine (#1) 2025 Breast Cancer Screening 11/03/2026 11/03/2024 HIB Vaccines Aged Out No longer eligi ble based on patient's age to complete this topic HPV Vaccines Aged Out No longer eligi ble based on patient's age to complete this topic Hepatitis A Vaccines Aged Out No long er eligible based on patient's age to complete this topic IPV Vaccines Aged Out No longer eligi ble based on patient's age to complete this topic MMR Vaccines Aged Out No longer eligi ble based on patient's age to complete this topic Meningococcal ACWY Vaccine Aged Out N o longer eligible based on patient's age to complete this topic Meningococcal B Vaccine Aged Out No l onger eligible based on patient's age to complete this topic RSV Immunization Patients Un lex 20 months Aged Out No longer eligible b ased on patient's age to complete this topic Varicella Vaccines Aged Out No longer eligible based on patient's age to complete this topic Procedures Procedure Name Priority Date/Time Associated Diagnosis Comments MG MAMMO DIGITAL SCREENING W SUKHDEEP BILAT Routine 11/03/2024 10:44 AM EST Encounter for screening mammogram for breast cancer from Last 3 Months or Most Recently Relevant to Health Maintenance Results * MG Mammo Digital Screening w Sukhdeep bilat (11/03/2024 10:44 AM EST) Anatomical Region Laterality Modality Breast Bilateral Mammography 11/04/2024 11:5 3 AM EST Impressions 11/04/2024 12:00 PM EST No mammographic evidence of malignancy. No suspicious interval change. A negative mammogram in the presence of a clinically suspicious palpable abnormality does not preclude the possibility of malignancy or alter the indications for biopsy. ASSESSMENT: BI-RADS 2: BENIGN RECOMMENDATION(S): 1: Routine screening mammogram BILATERAL in 1 year. -------- FINAL REPORT -------- Dictated By: Bruno Petersen Dictated Date: 11/04/2024 11:53 ET Assigned Physician: Bruno Petersen Reviewed and Electronically Signed By: Bruno Petersen Signed Date: 11/04/2024 12:00 ET Workstation ID: [id number] Transcribed By: Self Edit Transcribed Date: 11/04/2024 11:53 ET Narrative 11/04/2024 12:00 PM EST EXAM: SCREENING MAMMOGRAPHY, BILATERAL HISTORY: SCREENING. No additional history. COMPARISON: 09/08/2022, 09/05/2021 TECHNIQUE: Synthesized CC and MLO projections of each breast. Tomosynthesis of each breast in the CC and MLO projections. ADDITIONAL IMAGING: None Computer-aided detection was employed with the iCAD Firefly Mobile AI 3-D. TISSUE DENSITY: There are scattered areas of fibroglandular density. (BI-RADS category B) FINDINGS: RIGHT BREAST: No suspicious mass. No suspicious calcification. No distortion. No additional suspicious right breast findings LEFT BREAST: No suspicious mass. No suspicious calcification. No distortion. 3 mm asymmetry in the outer left breast is unchanged. No additional suspicious left breast findings Procedure Note Bruno Petersen MD - 11/04/2024 EXAM: SCREENING MAMMOGRAPHY, BILATERAL HISTORY: SCREENING. No additional history. COMPARISON: 09/08/2022, 09/05/2021 TECHNIQUE: Synthesized CC and MLO projections of each breast.Tomosynthesis of each breast in the CC and MLO projections. ADDITIONAL IMAGING: None Computer-aided detection was employed with the iCAD profound AI 3-D. TISSUE DENSITY: There are scattered areas of fibroglandular density.(BI-RADS category B) FINDINGS: RIGHT BREAST: No suspicious mass. No suspicious calcification. No distortion. Noadditional suspicious right breast findings LEFT BREAST: No suspicious mass. No suspicious calcification. No distortion. 3 mm asymmetry in the outer left breast is unchanged. No additional suspicious left breast findings IMPRESSION: No mammographic evidence of malignancy. No suspicious interval change. A negative mammogram in the presence of a clinically suspicious palpableabnormality does not preclude the possibility of malignancy or alter theindications for biopsy. ASSESSMENT: BI-RADS 2: BENIGN RECOMMENDATION(S): 1: Routine screening mammogram BILATERAL in 1 year. -------- FINAL REPORT -------- Dictated By: Bruno Petersen Dictated Date: 11/04/2024 11:53 ET Assigned Physician: Bruno Petersen Reviewed and Electronically Signed By: Bruno Petersen Signed Date: 11/04/2024 12:00 ET Workstation ID: [id number] Transcribed By: Self Edit Transcribed Date: 11/04/2024 11:53 ET us Self Referral Sppl IMG BI PROCEDURES Final Resul t from Last 3 Months or Most Recently Relevant to Health Maintenance Insurance [employer] Care Teams Colloid Mill Operator Relationship Specialty Start Date End Date Eileen Multani MD [address] [place] [id number] PCP - General Internal Medicine 08/12/22
[2025-08-06 02:48] VITALS: BP 121/75; PULSE 60; RESP 16; TEMP 36.5; O2SAT 96
[2025-08-06 03:42] VITALS: BP 121/75; PULSE 60; RESP 16; TEMP 36.5; O2SAT 96
== END 2025-08-06 03:53 | disposition home or self-care (01) ==
PROVIDERS: Emergency Provider Emergency Medicine
DX: R10.32 Left lower quadrant pain (principal); R11.0 Nausea; Z79.899 Other long term (current) drug therapy
CPT/HCPCS: 36415; 74176; 80053; 81003; 81025; 83690; 85025; 96374; 96375; 99284; 99285; J1885; J2405

== ENCOUNTER → 2025-08-06 00:13 | Outpatient (BNV) | payer OTHER, SELFPAY | PROVIDERS: Emergency Provider Emergency Medicine; Visit Provider Radiology Diagnostic Radiology | DX: R10.32 Left lower quadrant pain (principal) | CPT/HCPCS: 74176 ==

== ENCOUNTER 2025-09-30 07:12 | Emergency (ER) | payer OTHER, SELFPAY ==
--- NOTE | 2025-09-30 | ECG_ITS ---
Test Reason : CP Blood Pressure : */* mmHG Vent. Rate : 73 BPM Atrial Rate : 73 BPM P-R Int : 178 ms QRS Dur : 80 ms QT Int : 412 ms P-R-T Axes : 52 -42 19 degrees QTcB Int : 453 ms Normal sinus rhythm Possible Left atrial enlargement Left axis deviation Low voltage QRS Abnormal ECG No previous ECGs available Referred By: Ian Del Real Electronically Signed By: Prudencio Godinez
--- NOTE | ~2025-09-30 | CT_ITS ---
CLINICAL HISTORY: LLQ and L flank pain CT abdomen and pelvis without contrast Comparison: CT/REG/SR - CT ABDOMEN PELVIS WO IV CON - 08/06/25 01:25 EDT Findings: No consolidation or effusion. Stable 1.1 cm left basilar pulmonary nodule. Motion artifact limits assessment of the gallbladder. Liver, spleen, pancreas, bilateral adrenal glands and bilateral kidneys are within normal limits. No nephrolithiasis. Descending colon is underdistended though the surrounding fat demonstrates mild and subtle inflammation in the left upper quadrant (series 3, image 30 and series 6, image 50), which is equivocal for early inflammatory versus infectious changes. No obvious associated diverticular disease is present. No bowel obstruction, pneumoperitoneum, or pneumatosis. Appendix is normal. Bladder is within normal limits. No acute osseous abnormality. No acute soft tissue abnormality. IMPRESSION: Subtle and mild fat stranding adjacent to the descending colon predominantly in the left upper quadrant could reflect developing colitis, infectious versus inflammatory, given no associated diverticula are present in the segment of colon. This document has been electronically signed by: Melvin Lynch MD on 09/30/2025 10:27:53
[2025-09-30 07:18] VITALS: BP 132/84; PULSE 76; RESP 16; TEMP 36.3; O2SAT 96; BMI 34.0
--- OUTSIDE RECORDS SUMMARY | 2025-09-30 07:42 | XMS_ITS | Clinical Summary ---
Author Organization [facility] Address [address] [place] [address] Phone Care Team Providers Care Medical Scheduler Name Role Phone Eileen Multani MD Primary Care Provider [phone] Allergies No known active allergies Active Problems Problem Noted Date Diagnosed Date History of endometrial cancer 09/26/2024 Surgical History Surgery Date Site/Laterality Comments SECTION PROCEDURE: HISTORICAL DELIVERY; COMMENT: 1993, 1995 OTHER SURGICAL HISTORY 01/06/2022 PROCEDURE: CA LAPS TOTAL HYSTERECT 250 GM/< W/RMVL TUBE/OVARY; [...] Care Team (Late st Contact Info) Description 01/30/2026 11:40 AM EDT Office Visit [facility] [address] [place] [phone] Edis Ramírez MD [address] [place] [address] Health Maintenance Due Date Last Done Comments Colorectal Cancer Screening: Colonoscopy 1972 COVID-19 Vaccine (#1) 1977 Hepatitis B Vaccines (1 of 3 - 19+ 3-dose series) 1991 Zoster Vaccines (1 of 2) 1991 Cervical Cancer Screening: P ap Smear 1993 DTaP,Tdap,and Td Vaccines (2 - Td or Tdap) 11/05/2018 11/05/2008 Pneumococcal Vaccine: 50+ Ye ars (1 of 1 - PCV) 2022 HIV Screening 10/26/2022 Hepatitis C Screening 10/26/2022 Social Influencers of Health Screening 10/26/2022 Depression Screening 11/23/2024 Influenza Vaccine (#1) 2025 Breast Cancer Screening 11/03/2026 11/03/2024 RSV Immunization Adult Patie nts (1 - 1-dose 75+ series) 2047 HIB Vaccines Aged Out No longer eligi [...] Signed Date: 11/04/2024 12:00 ET Workstation ID: [id number] Transcribed By: Self Edit Transcribed Date: 11/04/2024 [...] Signed Date: 11/04/2024 12:00 ET Workstation ID: [id number] Transcribed By: Self Edit Transcribed Date: 11/04/2024 11:53 ET us Self Referral Sppl IMG BI PROCEDURES Final Resul t from Last 3 Months or Most Recently Relevant to Health Maintenance Insurance [employer] Care Teams Medical Scheduler Relationship Specialty Start Date End Date Eileen Multani MD [address] [place] [address] PCP - General Internal Medicine 08/12/22
--- OUTSIDE RECORDS SUMMARY | 2025-09-30 07:42 | XMS_ITS | Clinical Summary ---
Author Organization [facility] Address [address] [place] [address] Care Team Providers Care Film Sound Coordinator Name Role Phone Eileen Multani MD Primary Care Provider [phone] Social History Tobacco Use Types Packs/Day Years [...] age to complete this topic Care Teams Film Sound Coordinator Relationship Specialty Start Date End Date Eileen Multani MD [address] [place] [address] [address] [place] [address] PCP - General Internal Medicine 08/12/22
[2025-09-30 08:00] VITALS: BP 134/82; PULSE 72; RESP 18; O2SAT 99
[2025-09-30 08:01] LABS: MANUAL DIFF FLAG NO
[2025-09-30 08:05] LABS: Appearance Urine Clear; Glucose Urine UA Negative (Negative); PH 5.5 (5.0-9.0); Specific Gravity - Urine 1.010 (1.005-1.025); UMIC TRIGGER UACC YES
[2025-09-30 08:06] LABS: Hematocrit 40.8 % (37.0-47.0); Hemoglobin 13.9 g/dl (12.0-16.0); Imm Gran Abs Auto 0.01 X10*3/uL (0.00-0.03); Imm Gran Pct Auto 0.1 % (0.0-0.4); Lymphocytes Absolute Auto 2.7 X10*3/uL (1.2-4.9); Mean Corpuscular HGB Conc 34.1 g/dl (31.0-35.0); Mean Corpuscular Hemoglobin 29.6 pg (27.0-33.0); Mean Corpuscular Volume 86.8 fL (80.0-98.0); NRBC Abs Auto 0.000 X10*3/uL (0.0-0.012); NRBC Pct Auto 0.0 /100WBC (0.0-0.2); Platelet Count 285 X10*3/uL (160-400); Red Blood Count 4.70 X10*6/uL (4.20-5.50); White Blood Count 7.1 X10*3/uL (4.8-10.8)
[2025-09-30 08:18] LABS: UACC Culture Trigger YES
[2025-09-30 08:44] LABS: Alanine Aminotransferase 48 U/L (0-31); Albumin Level 4.7 g/dL (3.5-5.0); Alkaline Phosphatase 80 U/L (39-117); Anion Gap 12 (12-20); Aspartate Amino Transferase 35 U/L (5-31); Blood Urea Nitrogen 12 mg/dL (9-16); Calcium 9.0 mg/dL (8.4-10.2); Carbon Dioxide 24 mmol/L (22-29); Chloride 108 mmol/L (96-108); Creatinine Clr Calc Pharmacy 106.9; Estimated Glomerular Filt Rate > 60; Lipase 26 U/L (8-78); Potassium 3.4 mmol/L (3.3-5.1); Sodium 141 mmol/L (135-145); Total Protein 7.4 g/dL (6.5-8.0)
[2025-09-30 10:00] VITALS: BP 138/85; PULSE 82; RESP 18; O2SAT 98
--- NOTE | 2025-09-30 10:41 | ED.FEMALEGU ---
HPI - Female Genitourinary General Chief complaint: Urogenital-Female Stated complaint: abd pain Time Seen by Provider: 09/30/25 08:46 Source: patient and mold maker helper (qatari) Mode of arrival: ambulatory Limitations: language barrier (qatari) History of Present Illness ED Provider: ESTELLA GARCIA PA-C HPI Narrative: 55-year-old female presents to the emergency department today for evaluation of abdominal pain x1 week. Pain is localized to LLQ. No radiation. Constant in nature. Endorses associated dysuria and hematuria. Endorses history of ovarian cancer 2 years ago, s/p total hysterectomy. Denies fever, chills, N/V/D, constipation, flank pain, vaginal discharge, vaginal bleeding, hematochezia, melena. Related Data Previous Rx's ?Medication ?Instructions ?Recorded amoxicillin 875 mg-potassium 1 tab PO BID #14 tabs 03/16/23 clavulanate 125 mg tablet ondansetron 4 mg disintegrating 4 mg PO Q8H PRN nausea and 03/16/23 tablet vomiting #10 tabs ondansetron 4 mg disintegrating 4 mg PO Q8H PRN nausea and 10/14/23 tablet vomiting #20 tabs ibuprofen 600 mg tablet 600 mg PO TID PRN fever or pain 11/27/23 #20 tabs nirmatrelvir 300 mg (150 mg See Rx Instructions PO .COMPLEX 11/27/23 x2)-ritonavir 100 mg tablet,dose #30 ea pack (Paxlovid) levofloxacin 750 mg tablet 750 mg PO DAILY 5 days #5 tabs 09/30/25 Allergies Allergy/AdvReac Type Severity Reaction Status Date / Time No Known Allergies Allergy Verified 09/30/25 07:23 Review of Systems Review of Systems: Yes all other systems are reviewed and are negative [facility] Past Medical History Attestation statement: The following information was validated with the patient. Source: old records reviewed and nursing notes reviewed Medical History Uterine cancer Surgical History H/O: hysterectomy Social History Social History Alcohol intake: never Physical Exam Vital Signs: Vital Signs: Last Vital Signs Temp 0 F L 09/30/25 11:07 Pulse 82 09/30/25 11:07 Resp 18 09/30/25 11:07 BP 138/85 09/30/25 11:07 Pulse Ox 98 09/30/25 11:07 O2 Del Method Room Air 09/30/25 11:07 BMI result Body Mass Index 34.0 vital signs stable General: Well appearing, in no acute distress. Skin: Warm, dry, intact. No rashes or lesions. Head: Normocephalic, atraumatic. EENT: Hearing is intact b/l. Conjunctiva clear. Sclera is anicteric. PERRLA. EOM intact. Moist mucous membranes.? Cardiac: Chest wall symmetric. RRR. Lungs: Normal respiratory effort without accessory muscle use. CTA bilaterally Abdomen: Soft, non-tender, non-distended. No rebound tenderness or guarding. Positive BS x4. no cvat b/l. Back: No midline spinous or paraspinal tenderness. No step off deformity. Ext: Upper and lower extremities atraumatic, without tenderness, deformity, swelling or erythema. Full ROM throughout Neuro: AOx3. Normal speech. Ambulating with steady gait. Course Course Course Narrative: CBC without leukocytosis or left shift. No anemia. H&H stable. Chemistry without acute electrolyte abnormality requiring intervention. No SARAH. Chronically elevated AST/ALT, around baseline. The rest of her liver function is normal. Lipase WNL. Her urine is infected. CT of her abdomen shows subtle and mild fat stranding adjacent to descending colon, predominantly to left upper quadrant may reflect developing colitis. No other acute abnormalities. > will treat patient with antibiotics. Levofloxacin sent to pharmacy. Patient has remained stable throughout ED visit today. Discussed worrisome signs and symptoms and when to return to the ED. All questions answered at this time. Patient is agreeable with disposition and stable for discharge. Medications Administered Discontinued Medications Generic Name Dose Route Start Last Admin Trade Name Freq PRN Reason Stop Dose Admin Ketorolac Tromethamine 30 mg 09/30/25 09:14 09/30/25 09:24 Ketorolac Tromethamine 30 Mg/Ml Vial IM 09/30/25 09:15 30 mg ONCE ONE Administration Medical Decision Making Medical Decision Making MDM Narrative: 55-year-old female presents to the emergency department today for evaluation of abdominal pain x1 week. Her vitals are stable, exam benign. Differential diagnoses: diverticulitis, diverticulosis, UTI, constipation Abdominal exam without peritoneal signs. No evidence of acute abdomen at this time. Well appearing. Low suspicion for acute hepatobiliary disease (including acute cholecystitis), acute infectious processes (pneumonia, hepatitis, pyelonephritis, PID, TOA), vascular catastrophe, bowel obstruction or viscus perforation, ovarian cyst/ rupture/ torsion as she is status post hysterectomy.. Presentation not consistent with other acute, emergent causes of abdominal pain at this time. Plan: labs, UA, CT AP, pain control, fluids, serial reassessment Differential Diagnosis Differential Diagnoses: The differential diagnosis associated with the presentation includes as above. Admission/Observation not indicated. Lab Data MDM Lab Attestation statement: I reviewed the patient's lab results. as above. 09/30/25 07:52 09/30/25 07:52 Labs: Lab Results 09/30/25 09/30/25 Range/Units 07:52 07:56 WBC 7.1 (4.8-10.8) X10*3/uL RBC 4.70 (4.20-5.50) X10*6/uL Hgb 13.9 (12.0-16.0) g/dl Hct 40.8 (37.0-47.0) % MCV 86.8 (80.0-98.0) fL MCH 29.6 (27.0-33.0) pg MCHC 34.1 (31.0-35.0) g/dl RDW 13.5 (11.0-16.0) % Plt Count 285 (160-400) X10*3/uL MPV 9.5 (9.4-12.3) fL Immature Gran % (Auto) 0.1 (0.0-0.4) % Neut % (Auto) 52.4 (45-73) % Lymph % (Auto) 37.6 (20-40) % Toombs % (Auto) 7.9 (2-11) % Eos % (Auto) 1.3 (0-4) % Baso % (Auto) 0.7 (0-2) % Lymph # (Auto) 2.7 (1.2-4.9) X10*3/uL Toombs # (Auto) 0.6 (0.1-1.2) X10*3/uL Eos # (Auto) 0.1 (0.0-0.4) X10*3/uL Baso # (Auto) 0.1 (0.0-0.2) X10*3/uL Abs Immat Gran (auto) 0.01 (0.00-0.03) X10*3/uL Absolute Neuts (auto) 3.7 (2.0-8.3) x10*3/uL Absolute Nucleated RBC 0.000 (0.0-0.012) X10*3/uL Nucleated RBC % (auto) 0.0 (0.0-0.2) /100WBC Sodium 141 (135-145) mmol/L Potassium 3.4 (3.3-5.1) mmol/L Chloride 108 (96-108) mmol/L Carbon Dioxide 24 (22-29) mmol/L Anion Gap 12 (12-20) BUN 12 (9-16) mg/dL Creatinine 0.66 (0.5-1.4) mg/dL Estim Creat Clear Calc 106.9 Estimated GFR > 60 Random Glucose 92 (60-115) mg/dL Calcium 9.0 (8.4-10.2) mg/dL Total Bilirubin 0.6 (0.0-1.0) mg/dL Direct Bilirubin 0.2 (0.0-0.5) mg/dL AST 35 H (5-31) U/L ALT 48 H (0-31) U/L Alkaline Phosphatase 80 (39-117) U/L Total Protein 7.4 (6.5-8.0) g/dL Albumin 4.7 (3.5-5.0) g/dL Lipase 26 (8-78) U/L Urine Color Yellow Urine Appearance Clear Urine pH 5.5 (5.0-9.0) Ur Specific Bryant 1.010 (1.005-1.025) Urine Protein Negative (Neg-Trace) mg/dL Urine Glucose (UA) Negative (Negative) mg/dL Urine Ketones Negative (Negative) mg/dL Urine Blood Small (1+) H (Negative) Urine Nitrite Negative (Negative) Ur Leukocyte Esterase Small (1+) H (Negative) Urine RBC 0-2 (0-2) /HPF Urine WBC 11-20 H (0-5) /HPF Ur Squamous Epith Cells 6-10 (0-2) /HPF Urine Bacteria Trace (None Seen) Hyaline Casts 0-2 (0-2) /LPF Independent Interpretation I performed an independent interpretation of an: CT Scan Interpretation: ct a/p without bowel obstruction Radiology Impression Discussion of test interpretation with radiology: I have reviewed the radiologist's reading. Radiologist Impression: Procedure(s): CT abdomen pelvis wo IV con Accession Number(s): [id number] cc: Physician,Unknown ; Estella Garcia~ Report Number: [id number]: Total DLP = 659.00 mGy-cm Reason for Exam: LLQ and L flank pain CLINICAL HISTORY: LLQ and L flank pain CT abdomen and pelvis without contrast Comparison: CT/REG/SR - CT ABDOMEN PELVIS WO IV CON - 08/06/25 01:25 EDT Findings: No consolidation or effusion. Stable 1.1 cm left basilar pulmonary nodule. Motion artifact limits assessment of the gallbladder. Liver, spleen, pancreas, bilateral adrenal glands and bilateral kidneys are within normal limits. No nephrolithiasis. Descending colon is underdistended though the surrounding fat demonstrates mild and subtle inflammation in the left upper quadrant (series 3, image 30 and series 6, image 50), which is equivocal for early inflammatory versus infectious changes. No obvious associated diverticular disease is present. No bowel obstruction, pneumoperitoneum, or pneumatosis. Appendix is normal. Bladder is within normal limits. No acute osseous abnormality. No acute soft tissue abnormality. IMPRESSION: Subtle and mild fat stranding adjacent to the descending colon predominantly in the left upper quadrant could reflect developing colitis, infectious versus inflammatory, given no associated diverticula are present in the segment of colon. This document has been electronically signed by: Melvin Lynch MD on 09/30/2025 10:27:53 External Record Review External record reviewed: Inpatient record Prescription Management I considered prescription management with: Antibiotic (Levofloxacin) Social Determinants Patient?s care significantly limited by Social Determinants of Health including: Other Social Determinant of Health Critical Care Time Critical Care Time Critical Care Time: No Discharge Plan Discharge Clinical Impression: UTI (urinary tract infection), Colitis Patient Disposition: Home, Self-Care Instructions: Urinary Tract Infection in Women (ED), Colitis (ED) Additional Instructions: You were evaluated in the ED today for left sided abdominal pain and blood in your urine. Your blood work is reassuring. You have a mild urinary tract infection. The CT scan of your abdomen does not demonstrate any significant kidney or ureteral stones. It does show some early colitis. Stick to a bland diet over the next 5 days. I am sending an antibiotic to your pharmacy for you to take over the next 5 days. Follow up with your outpatient providers. Return with any new or worsening symptoms. In the case of an emergency call 911. Prescriptions: New levofloxacin 750 mg tablet 750 mg PO DAILY 5 Days Qty: 5 0RF No Action ondansetron 4 mg tablet,disintegrating 4 mg PO Q8H PRN (Reason: nausea and vomiting) Qty: 10 0RF amoxicillin-pot clavulanate 875-125 mg tablet 1 tab PO BID Qty: 14 0RF Paxlovid 300 mg (150 mg x 2)-100 mg tablets,dose pack See Rx Instructions .ROUTE .COMPLEX Qty: 30 0RF Rx Instructions: take TWO 150 mg tablets of nirmatrelvir with ONE 100 mg tablet of ritonavir twice daily for 5 days ibuprofen 600 mg tablet 600 mg PO TID PRN (Reason: fever or pain) Qty: 20 0RF ondansetron 4 mg tablet,disintegrating 4 mg PO Q8H PRN (Reason: nausea and vomiting) Qty: 20 0RF Referrals: Physician,Unknown J [Primary Care Provider, Medical] Interventions: ED Discharge Assessment Last Done: 09/30/25 11:07 Discharge Date/Time: 09/30/25 11:13 Print Language: Frisian
[2025-09-30 11:07] VITALS: BP 138/85; PULSE 82; RESP 18; TEMP -17.7; TEMP 0; O2SAT 98
== END 2025-09-30 11:13 | disposition home or self-care (01) ==
PROVIDERS: Emergency Provider Emergency Medicine Emergency Medical Services
DX: N39.0 Urinary tract infection, site not specified (principal); K52.9 Noninfective gastroenteritis and colitis, unspecified; Z90.710 Acquired absence of both cervix and uterus
CPT/HCPCS: 36415; 74176; 80048; 80076; 81001; 81003; 83690; 85025; 87086; 93005; 96372; 99283; 99284; J1885

== ENCOUNTER → 2025-09-30 07:25 | Outpatient (BNV) | payer OTHER, SELFPAY | PROVIDERS: Emergency Provider Emergency Medicine Emergency Medical Services; Visit Provider Internal Medicine Cardiovascular Disease | DX: R94.31 Abnormal electrocardiogram [ECG] [EKG] (principal); R07.9 Chest pain, unspecified | CPT/HCPCS: 93010 ==

== ENCOUNTER → 2025-09-30 09:14 | Outpatient (BNV) | payer OTHER, SELFPAY | PROVIDERS: Emergency Provider Emergency Medicine Emergency Medical Services; Visit Provider Radiology Vascular & Interventional Radiology | DX: R10.32 Left lower quadrant pain (principal) | CPT/HCPCS: 74176 ==